=== PATIENT | male | born 1990 | race Caucasian/White ===

== ENCOUNTER → 2016-06-05 | Outpatient (CLI) | payer BC ==
[~2016-06-05] MED LIST: APAP325T PO
--- NOTE | 2016-06-05 13:48 | REP ---
LIMITED PELVIC ULTRASOUND: HISTORY: Groin pain. There is no inguinal hernia. A lymph node is present in the right groin. The lymph node measures 2.8 x 0.6 x 2.2 cm. Increased flow is present in the lymph node. IMPRESSION: There is no inguinal hernia. Signed by Kvng Pisano MD 06/05/2016 01:52 P
== END ==
LOC: M RAD 12:27
PROVIDERS: ATTEND Physician Assistant Medical
DX: R10.31 Right lower quadrant pain (principal)

== ENCOUNTER 2018-04-16 14:05 | Emergency (ER) | payer BC ==
[~2018-04-16] VITALS: Ht 180.3 cm; Wt 68.2 kg
[2018-04-16] MEDS ORDERED: HYDR-3363 PO (14:26)
[2018-04-16] MEDS ORDERED: METO1TAB87 PO (14:26)
[2018-04-16] MEDS ORDERED: RANI15TA PO (14:26)
[2018-04-16] MEDS ORDERED: AMOX500C PO (15:08)
[2018-04-16 15:36] LABS: INFLUENZA A AMPLIFICATION NEGATIVE (NEGATIVE); INFLUENZA B AMPLIFICATION NEGATIVE (NEGATIVE)
[2018-04-16] MEDS ORDERED: ALPR0.25 PO (15:48)
[2018-04-16 15:58] VITALS: BP 124/82
--- NOTE | 2018-04-17 20:54 | ECGEPIP ---
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
== END 2018-04-16 16:09 | disposition home or self-care (01) ==
LOC: M ED 14:05
DX: J32.9 Chronic sinusitis, unspecified (principal); R00.2 Palpitations; F41.9 Anxiety disorder, unspecified; K59.00 Constipation, unspecified; R03.0 Elevated blood-pressure reading, without diagnosis of hypertension; F17.200 Nicotine dependence, unspecified, uncomplicated; Z91.048 Other nonmedicinal substance allergy status; Z79.899 Other long term (current) drug therapy

== ENCOUNTER → 2018-07-21 | Outpatient (REF) | payer BC ==
[~2018-07-21] MED LIST changes: +ALPR0.25 PO; +AMOX500C PO; +HYDR-3363 PO; +METO1TAB87 PO; +RANI15TA PO
[2018-07-21 18:21] LABS: BASO % 0.5 % (0.0-1.0); EOS # 0.1 10^3/uL (0.0-0.50); EOS % 1.9 % (0.0-3.0); HEMATOCRIT 42.7 % (42.0-52.0); HEMOGLOBIN 14.8 g/dl (13.5-17.5); LYMPH # 1.3 10^3/uL (1.5-6.5); LYMPH % 35.3 % (24.0-44.0); MEAN CORPUSCULAR HEMOGLOBIN 29.2 pg (27.0-33.0); MEAN CORPUSCULAR HGB CONC 34.7 g/dl (32.0-36.5); MEAN CORPUSCULAR VOLUME 84.4 fl (80.0-96.0); MONO # 0.5 10^3/uL (0.0-0.8); NEUTROPHILS # 1.9 10^3/uL (1.8-7.7); PLATELET COUNT, AUTOMATED 188 10^3/uL (150-450); RED BLOOD COUNT 5.06 10^6/uL (4.30-6.10); WHITE BLOOD COUNT 3.7 10^3/uL (4.0-10.0)
[2018-07-21 18:46] LABS: ALBUMIN 4.2 GM/DL (3.2-5.2); ALT/SGPT 25 U/L (12-78); BILIRUBIN,TOTAL 0.8 MG/DL (0.2-1.0); BLOOD UREA NITROGEN 8 MG/DL (7-18); CALCIUM LEVEL 8.8 MG/DL (8.5-10.1); CARBON DIOXIDE LEVEL 29 MEQ/L (21-32); CHLORIDE LEVEL 107 MEQ/L (98-107); CHOLESTEROL LEVEL 113 MG/DL (<200); CHOLESTEROL RISK RATIO 2.627 (<5); CREATININE FOR GFR 0.96 MG/DL (0.70-1.30); FREE T4 0.97 NG/DL (0.76-1.46); GLOMERULAR FILTRATION RATE > 60.0 (>60); GLUCOSE, FASTING 80 MG/DL (70-100); HDL CHOLESTEROL 43 MG/DL (>40); LDL CHOLESTEROL 62 MG/DL (<100); NON-HDL-C 70 MG/DL; POTASSIUM SERUM 4.3 MEQ/L (3.5-5.1); SODIUM LEVEL 142 MEQ/L (136-145); TOTAL PROTEIN 7.1 GM/DL (6.4-8.2); TRIGLYCERIDES LEVEL 38 MG/DL (<150)
[2018-07-21 19:33] LABS: HEMOGLOBIN A1c 4.9 %
== END ==
LOC: M SFHCPLAZ 15:43
DX: Z00.00 Encounter for general adult medical examination without abnormal findings (principal)

== ENCOUNTER → 2018-12-09 | Outpatient (REF) | payer BC | LOC: M SFHCPLAZ 16:51 | PROVIDERS: ATTEND Internal Medicine | DX: J02.9 Acute pharyngitis, unspecified (principal) ==

== ENCOUNTER 2019-01-31 05:30 | Inpatient (IN) | payer BC ==
[~2019-01-31] VITALS: Ht 165.1 cm; Wt 70.5 kg
[2019-01-31] MEDS ORDERED: LEXA1TAB2 PO (06:04)
[2019-01-31 06:57] LABS: ACETAMINOPHEN LEVEL < 2.0 UG/ML (10.0-30.0); ALBUMIN 4.6 GM/DL (3.2-5.2); ALT/SGPT 42 U/L (12-78); AMPHETAMINES LEVEL URINE NEGATIVE (NEGATIVE); BARBITURATES URINE NEGATIVE (NEGATIVE); BENZODIAZEPINES URINE NEGATIVE (NEGATIVE); BILIRUBIN,DIRECT 0.1 MG/DL (0.0-0.2); BILIRUBIN,TOTAL 0.4 MG/DL (0.2-1.0); BLOOD UREA NITROGEN 8 MG/DL (7-18); CALCIUM LEVEL 8.9 MG/DL (8.5-10.1); CANNABINOIDS URINE NEGATIVE (NEGATIVE); CARBON DIOXIDE LEVEL 25 MEQ/L (21-32); CHLORIDE LEVEL 110 MEQ/L (98-107); COCAINE METABOLITE URINE NEGATIVE (NEGATIVE); CREATININE FOR GFR 0.98 MG/DL (0.70-1.30); ETHYL ALCOHOL (ETHANOL) 0.225 % (0.000-0.010); GLOMERULAR FILTRATION RATE > 60.0 (>60); GLUCOSE, FASTING 88 MG/DL (70-100); METHADONE URINE NEGATIVE (NEGATIVE); OPIATES URINE NEGATIVE (NEGATIVE); PHENCYCLIDINE URINE NEGATIVE (NEGATIVE); POTASSIUM SERUM 3.8 MEQ/L (3.5-5.1); SALICYLATE LEVEL 2.1 MG/DL (5.0-30.0); SODIUM LEVEL 143 MEQ/L (136-145); TOTAL PROTEIN 8.3 GM/DL (6.4-8.2)
[2019-01-31 07:05] LABS: HEMATOCRIT 47.4 % (42.0-52.0); HEMOGLOBIN 16.7 g/dl (13.5-17.5); MEAN CORPUSCULAR HEMOGLOBIN 29.8 pg (27.0-33.0); MEAN CORPUSCULAR HGB CONC 35.2 g/dl (32.0-36.5); MEAN CORPUSCULAR VOLUME 84.5 fl (80.0-96.0); PLATELET COUNT, AUTOMATED 224 10^3/uL (150-450); RED BLOOD COUNT 5.61 10^6/uL (4.30-6.10); WHITE BLOOD COUNT 5.7 10^3/uL (4.0-10.0)
[2019-01-31] MEDS ORDERED: ESCITALOPRAM OXALATE 10 MG TAB (LEXAPRO) PO ONE (11:00)
[2019-01-31] MEDS ORDERED: METOPROLOL TART 25 MG TABLET PO ONE (11:00)
[2019-01-31] MEDS ORDERED: PILL CUTTER 1 EACH XX ONE (11:17)
[2019-01-31] MEDS ORDERED: MOM 30ML SUSPENSION UDC PO PRN (14:15)
[2019-01-31] MEDS ORDERED: MAALOX 30 ML SUSP *UDC PO PRN (14:15)
[2019-01-31] MEDS ORDERED: ACETAMINOPHEN TAB 650MG DOSE (2X325MG) PO PRN (14:15)
[2019-01-31] MEDS ORDERED: traZODone 50 MG TAB PO PRN (14:15)
[2019-01-31] MEDS ORDERED: HYDR50TA70 PO (15:49)
[2019-01-31] MEDS: LORazepam 1 MG TAB PO PRN (17:40)
[2019-01-31] MEDS: FOLIC ACID 1 MG TAB PO SCH (17:40)
[2019-01-31] MEDS: MULTIVITAMINS/MINERALS THERAP 1 TAB PO SCH (17:40)
[2019-01-31] MEDS ORDERED: LORazepam 2 MG TAB PO PRN ×2 (17:45)
[2019-01-31] MEDS: THIAMINE 100 MG TAB PO SCH (20:51)
[2019-01-31] MEDS: METOPROLOL TART 12.5 MG PER 1/2 TAB PO SCH (21:28)
[2019-02-01 06:23] VITALS: BP 125/76
[2019-02-01] MEDS: FOLIC ACID 1 MG TAB PO SCH (08:08)
[2019-02-01] MEDS: THIAMINE 100 MG TAB PO SCH ×2 (08:08→21:13)
[2019-02-01] MEDS: METOPROLOL TART 12.5 MG PER 1/2 TAB PO SCH ×2 (08:08→21:13)
[2019-02-01] MEDS: MULTIVITAMINS/MINERALS THERAP 1 TAB PO SCH (08:08)
[2019-02-01] MEDS: NICOTINE 7 MG/24 HR TRANSDERMAL TD SCH (09:00)
--- NOTE | 2019-02-01 09:45 | HPEPDOC ---
[facility] Medical History & Physical Date of Admission Jan 31, 2019 Date of Service: Feb 01, 2019 History and Physical CHIEF COMPLAINT: Suicidal ideation HISTORY OF PRESENT ILLNESS: Patient is a 28M with H Anxiety and palpitations [facility] reported expressing suicidal thoughts after drinking heavily. He stated that he just made these comments because he was intoxicated but had no plan to hurt himself. Patient reported a history of intermittent palpitations and anxiety for the past several years and currently undergoing workup with cardiology as outpatient, Dr. Aggarwal, had a Holter monitor recently. Symptoms reportedly very intermittent lasting for several seconds, several times a month associated with anxiety at times. He denies any complaints at this time including any chest pain, SOB, palpitations, fever, chills, or suicidal ideation. PAST MEDICAL HISTORY: Refer to [facility] PAST SURGICAL HISTORY: None SOCIAL HISTORY: Smokes 1/2 ppd. Social alcohol use varying in number of drinks,about once a week on average Denies illicit drug use. FAMILY HISTORY: Reviewed and noncontributory ALLERGIES: Please see below. REVIEW OF SYSTEMS: 10 point review of system negative except as stated in [facility] HOME MEDICATIONS: Please see below. PHYSICAL EXAMINATION: General: No acute distress, Alert Eyes: Normal sclera, EOMI HENT: Atraumatic Cardiovascular: Normal rate, normal rhythm. Pulmonary: Clear to auscultation b/l, no wheezing GI: Soft, nontender, nondistended Skin: Warm and dry Neuro: CN grossly intact. No focal deficits. Strengths equal b/l. Psych: oriented x 3 LABORATORY DATA: See below. IMAGING: NONE MICROBIOLOGY: Please see below. ASSESSMENT AND PLAN: 1. Palpitations and anxiety - Undergoing workup with cardiology as outpatient, can continue to do so post discharge. - No active problems at this time. - c/w metoprolol home med. 2. Suicidal ideation - Denies current SI. - Evaluate and manage per psych 3. Tobacco use - Offer nicotine patch. No active medical problems at this time. Will sign off, please call back with any questions or changes in clinical status. Vital Signs Vital Signs Date Time Temp Pulse Resp B/P (MAP) Pulse Ox O2 Delivery O2 Flow Rate FiO2 02/01/19 08:08 75 125/76 02/01/19 06:23 99.1 18 01/31/19 14:42 99 Room Air Laboratory Data Labs 24H Laboratory Tests 2 01/31/19 10:47: Ethyl Alcohol Level 0.133H Home Medications Scheduled Escitalopram Oxalate (Lexapro) 20 Mg Tablet, 20 MG PO DAILY Metoprolol Tartrate (Metoprolol Tartrate) 25 Mg Tab, 12.5 MG PO BID Scheduled PRN Hydroxyzine HCl (Hydroxyzine HCl) 50 Mg Tablet, 50 MG PO Q6H PRN for ANXIETY Allergies Coded Allergies: No Known Drug Allergies (Verified Allergy, Unknown, 01/31/19) A-FIB/CHADSVASC A-FIB History Current/History of A-Fib/PAF?: No TEA KIDD MD Feb 01, 2019 09:45
[2019-02-01] MEDS: ESCITALOPRAM OXALATE 10 MG TAB (LEXAPRO) PO SCH (12:04)
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
[2019-02-01 16:31] VITALS: BP 136/88
[2019-02-01] MEDS: LORazepam 1 MG TAB PO PRN (22:36)
[2019-02-02 06:14] VITALS: BP 128/82
[2019-02-02] MEDS: FOLIC ACID 1 MG TAB PO SCH (08:40)
[2019-02-02 08:41] VITALS: BP 130/85
[2019-02-02] MEDS: MULTIVITAMINS/MINERALS THERAP 1 TAB PO SCH (08:41)
[2019-02-02] MEDS: METOPROLOL TART 12.5 MG PER 1/2 TAB PO SCH (08:41)
[2019-02-02] MEDS: ESCITALOPRAM OXALATE 10 MG TAB (LEXAPRO) PO SCH (08:41)
[2019-02-02] MEDS: THIAMINE 100 MG TAB PO SCH (08:41)
[2019-02-02] MEDS: NICOTINE 7 MG/24 HR TRANSDERMAL TD SCH (08:42)
[2019-02-02] MEDS ORDERED: ESCI10TA2 PO (10:06)
[2019-02-02] MEDS ORDERED: HYDR50TA70 PO (10:06)
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
== END 2019-02-02 11:08 | disposition home or self-care (01) | DRG 756 ==
LOC: M ED 05:30 → M ED INP 14:05 → M PSY 16:14
PROVIDERS: ADMIT Psychiatry & Neurology Psychiatry; ATTEND Psychiatry & Neurology Psychiatry
DX: F41.9 Anxiety disorder, unspecified (principal); F10.94 Alcohol use, unspecified with alcohol-induced mood disorder; R45.851 Suicidal ideations; F17.200 Nicotine dependence, unspecified, uncomplicated; Z79.899 Other long term (current) drug therapy

== ENCOUNTER 2019-08-15 10:23 | Emergency (ER) | payer BC ==
[~2019-08-15] VITALS: Ht 180.3 cm; Wt 76.9 kg
[~2019-08-15 10:23] MED LIST changes: +ESCI10TA2 PO; +HYDR50TA70 PO; +LEXA1TAB2 PO
[2019-08-15] MEDS ORDERED: PROP20TA72 (10:30)
[2019-08-15] MEDS ORDERED: MUCI600T31 PO (11:21)
[2019-08-15] MEDS ORDERED: FLON1SPR NARES (11:21)
[2019-08-15] MEDS ORDERED: AUGM875T28 PO (11:21)
[2019-08-15] MEDS ORDERED: PSEU30TA88 PO (11:21)
[2019-08-15 11:25] VITALS: BP 118/78
== END 2019-08-15 11:26 | disposition home or self-care (01) ==
LOC: M ED 10:23
DX: K08.9 Disorder of teeth and supporting structures, unspecified (principal); H65.01 Acute serous otitis media, right ear; J30.9 Allergic rhinitis, unspecified; J45.909 Unspecified asthma, uncomplicated; F17.218 Nicotine dependence, cigarettes, with other nicotine-induced disorders

== ENCOUNTER → 2020-01-01 | Outpatient (CLI) | payer BC ==
[~2020-01-01] MED LIST changes: +AUGM875T28 PO; +FLON1SPR NARES; +MUCI600T31 PO; +PROP20TA72; +PSEU30TA88 PO
== END ==
LOC: M LABSMTC 11:53
PROVIDERS: ATTEND Family Medicine
DX: Z20.828 Contact with and (suspected) exposure to other viral communicable diseases (principal)

== ENCOUNTER → 2020-07-04 | Outpatient (CLI) | payer BC ==
[~2020-07-04] MED LIST changes: +ESCI10TA16 PO; -ESCI10TA2 PO
== END ==
LOC: M LABSMTC 10:01
PROVIDERS: ATTEND Pediatrics
DX: Z20.822 Contact with and (suspected) exposure to COVID-19 (principal)

== ENCOUNTER → 2020-11-02 | Outpatient (CLI) | payer BC | LOC: M LABSMTC 10:38 | PROVIDERS: ATTEND Pediatrics | DX: Z20.822 Contact with and (suspected) exposure to COVID-19 (principal) | CPT/HCPCS: C9803; U0003 ==

== ENCOUNTER → 2022-04-17 | Outpatient (CLI) | payer OTHER ==
[2022-04-17 13:43] LABS: HEMATOCRIT 46.4 % (42.0-52.0); MEAN CORPUSCULAR HEMOGLOBIN 29.2 pg (27.0-33.0); MEAN CORPUSCULAR HGB CONC 34.5 g/dl (32.0-36.5); MEAN CORPUSCULAR VOLUME 84.7 fl (80.0-96.0); PLATELET COUNT, AUTOMATED 259 10^3/uL (150-450); RED BLOOD COUNT 5.48 10^6/uL (4.30-6.10); WHITE BLOOD COUNT 7.1 10^3/uL (4.0-10.0)
[2022-04-17 13:56] LABS: HEMOGLOBIN A1c 5.2 % (4.0-6.0)
[2022-04-17 14:07] LABS: ALBUMIN 4.5 G/DL (3.2-5.2); ALKALINE PHOSPHATASE 92 U/L (46-116); ALT/SGPT 26 U/L (7.0-40); AST/SGOT 14 U/L (<34); BILIRUBIN,TOTAL 0.8 MG/DL (0.3-1.2); BLOOD UREA NITROGEN 12 MG/DL (9-23); CALCIUM LEVEL 9.1 MG/DL (8.5-10.1); CARBON DIOXIDE LEVEL 28 MMOL/L (20-31); CHLORIDE LEVEL 106 MMOL/L (98-107); CHOLESTEROL LEVEL 154 MG/DL (<200); CHOLESTEROL RISK RATIO 3.74 (<5); GLOMERULAR FILTRATION RATE > 60.0 (>60); GLUCOSE, FASTING 74 MG/DL (60-100); HDL CHOLESTEROL 41.1 MG/DL (>40); LDL CHOLESTEROL 99.9 MG/DL (<100); NON-HDL-C 112.9 MG/DL; POTASSIUM SERUM 4.4 MMOL/L (3.5-5.1); SODIUM LEVEL 140 MMOL/L (136-145); TOTAL PROTEIN 7.4 G/DL (5.7-8.2); TRIGLYCERIDES LEVEL 65 MG/DL (<150)
[2022-04-17 14:37] LABS: HIV 1&2 SCREEN CENTAUR NEGATIVE (NEGATIVE)
== END ==
LOC: M PLALAB 09:57
PROVIDERS: ATTEND Student in an Organized Health Care Education/Training Program
DX: H66.90 Otitis media, unspecified, unspecified ear (principal); Z13.220 Encounter for screening for lipoid disorders; Z13.1 Encounter for screening for diabetes mellitus; Z87.898 Personal history of other specified conditions

== ENCOUNTER → 2022-07-17 | Outpatient (CLI) | payer OTHER | LOC: M RAD 17:46 | PROVIDERS: ATTEND Physician Assistant | DX: J30.9 Allergic rhinitis, unspecified (principal) ==

== ENCOUNTER → 2023-03-30 | Outpatient (CLI) | payer OTHER ==
[2023-03-30 16:07] LABS: IMMUNOGLOBULIN A 257.4 MG/DL (40-350)
== END ==
LOC: M PLALAB 14:50
PROVIDERS: ATTEND Student in an Organized Health Care Education/Training Program
DX: B99.9 Unspecified infectious disease (principal)

== ENCOUNTER → 2023-06-08 | Outpatient (REF) | payer OTHER | LOC: M SFHCPLAZ 09:46 | PROVIDERS: ATTEND Family Medicine | DX: Z13.220 Encounter for screening for lipoid disorders (principal); R19.8 Other specified symptoms and signs involving the digestive system and abdomen; Z13.1 Encounter for screening for diabetes mellitus; K21.9 Gastro-esophageal reflux disease without esophagitis; J45.909 Unspecified asthma, uncomplicated; J32.9 Chronic sinusitis, unspecified; Z53.9 Procedure and treatment not carried out, unspecified reason ==

== ENCOUNTER → 2023-06-14 | Outpatient (CLI) | payer OTHER ==
[2023-06-14 17:22] LABS: BASO % 0.4 % (0.0-1.0); EOS # 0.1 10^3/uL (0.0-0.5); EOS % 1.3 % (0.0-3.0); HEMATOCRIT 44.3 % (42.0-52.0); HEMOGLOBIN 15.6 g/dl (13.5-17.5); LYMPH % 29.9 % (24.0-44.0); MEAN CORPUSCULAR HEMOGLOBIN 29.6 pg (27.0-33.0); MEAN CORPUSCULAR HGB CONC 35.2 g/dl (32.0-36.5); MEAN CORPUSCULAR VOLUME 84.1 fl (80.0-96.0); MONO # 0.8 10^3/uL (0.0-0.8); MONO % 11.9 % (2.0-8.0); NEUTROPHILS # 3.8 10^3/uL (1.5-8.5); NEUTROPHILS % 56.1 % (36.0-66.0); PLATELET COUNT, AUTOMATED 267 10^3/uL (150-450); RED BLOOD COUNT 5.27 10^6/uL (4.30-6.10); WHITE BLOOD COUNT 6.7 10^3/uL (4.0-10.0)
[2023-06-14 17:23] LABS: C REACTIVE PROTEIN QUANTITATIV < 0.40 MG/DL (<1.0)
[2023-06-14 17:25] LABS: ALBUMIN 4.3 G/DL (3.2-5.2); ALKALINE PHOSPHATASE 125 U/L (46-116); ALT/SGPT 48 U/L (7.0-40); AST/SGOT 18 U/L (<34); BILIRUBIN,TOTAL 0.5 MG/DL (0.3-1.2); BLOOD UREA NITROGEN 7 MG/DL (9-23); CALCIUM LEVEL 9.5 MG/DL (8.5-10.1); CARBON DIOXIDE LEVEL 26 MMOL/L (20-31); CHLORIDE LEVEL 105 MMOL/L (98-107); CHOLESTEROL LEVEL 165 MG/DL (<200); CHOLESTEROL RISK RATIO 5.15 (<5); CREATININE FOR GFR 0.94 MG/DL (0.70-1.30); GLOMERULAR FILTRATION RATE > 60.0 (>60); GLUCOSE, FASTING 75 MG/DL (60-100); LDL CHOLESTEROL 114.2 MG/DL (<100); POTASSIUM SERUM 5.3 MMOL/L (3.5-5.1); SODIUM LEVEL 138 MMOL/L (136-145); TOTAL PROTEIN 7.4 G/DL (5.7-8.2); TRIGLYCERIDES LEVEL 94 MG/DL (<150)
[2023-06-14 17:53] LABS: ERYTHROCYTE SEDIMENTATION RATE 11 mm/hr (0-15)
== END ==
LOC: M PLALAB 15:34
PROVIDERS: ATTEND Student in an Organized Health Care Education/Training Program
DX: Z13.1 Encounter for screening for diabetes mellitus (principal); K21.9 Gastro-esophageal reflux disease without esophagitis

== ENCOUNTER → 2025-01-12 | Outpatient (CLI) | payer MEDICAID, OTHER ==
[2025-01-12 14:25] LABS: PLATELET COUNT, AUTOMATED 285 10^3/uL (150-450)
[2025-01-12 14:51] LABS: ALT/SGPT 63 U/L (7.0-40); AST/SGOT 29 U/L (<34); CALCIUM LEVEL 9.3 MG/DL (8.5-10.1); CARBON DIOXIDE LEVEL 28 MMOL/L (20-31); CHLORIDE LEVEL 105 MMOL/L (98-107); CHOLESTEROL LEVEL 170 MG/DL (<200); CHOLESTEROL RISK RATIO 4.11 (<5); CREATININE FOR GFR 0.97 MG/DL (0.70-1.30); GLOMERULAR FILTRATION RATE > 90.0 (>60); LDL CHOLESTEROL 115.5 MG/DL (<100); NON-HDL-C 128.7 MG/DL; POTASSIUM SERUM 4.6 MMOL/L (3.5-5.1); SODIUM LEVEL 142 MMOL/L (136-145); TRIGLYCERIDES LEVEL 66 MG/DL (<150)
== END ==
LOC: M PLALAB 09:48
DX: F41.9 Anxiety disorder, unspecified (principal); Z13.220 Encounter for screening for lipoid disorders